=== PATIENT | female | born 1980 | race Caucasian/White ===

== ENCOUNTER 2017-07-16 14:05 | Emergency (ER) | payer BC ==
[~2017-07-16] VITALS: Ht 170.2 cm; Wt 109.2 kg
[~2017-07-16 14:05] MED LIST: ALBUAER INH; ATV/1 PO; BIOTCAP2 PO; LEVO75TA5 PO; LISI20TA3 PO; LVNIS40 SQ; MTR600X PO; ONDA4TAB65 PO; OXYC-57 PO; TRAZ50TA35 PO; ZOVIRAX CREAM TOP
[2017-07-16 14:16] VITALS: Ht 170.2 cm; Wt 109.2 kg
[2017-07-16] MEDS ORDERED: KETOROLAC TROMETHAMINE 30 MG/ML VIAL IV STA (14:26)
[2017-07-16] MEDS ORDERED: SODIUM CHLORIDE 0.9% 1000ML 2,000 ML IV STA (14:26)
[2017-07-16] MEDS ORDERED: SODIUM CHLORIDE 0.65% NA SOLN 45 ML (OCEAN) ONE (14:30)
[2017-07-16] MEDS ORDERED: ALBUT/IPRATROP 3MG/0.5MG NEB 3 ML VIAL INH ONE (14:30)
--- NOTE | 2017-07-16 14:32 | EMERGENCY ROOM VISIT NOTE ---
History Report prepared by Gregorio: Yohana Recio Under the Supervision of: Dr. Stefan Sears M.D. First contact with patient: 14:23 Chief Complaint: RESPIRATORY PROBLEMS Stated Complaint: SENT BY RECOVERING FROM FLU,ASTHMA & BREATHING History of Present Illness The patient is a 37 year old female who presents to the Emergency Room with complaints of persistent respiratory problems that started about 1 week ago. The patient rates her pain a 3/10 in severity. The patient states she was in ED over 1 week ago with her son who was diagnosed with the flu. She notes she got the flu 2 days later. She saw her PCP who gave her Tamiflu, cough syrup, and inhalers. She reports her cough is much worse than her son's. She notes she has a history of asthma. She reports she has persistent chest pain with her cough. The patient states her fever and body aches went away after taking Tamiflu. She reports her last fever was a couple of days ago. The patient states she has stress induced high blood pressure. The patient denies any nausea, vomiting, diarrhea, or urine changes. She notes she hasn't taken Tylenol or Ibuprofen for a couple of days. Source of History: patient Onset: 1 week ago Position: other (global) Symptom Intensity: 3/10 Timing: other (persistent) Associated Symptoms: + cough, + chest pain, No nausea, No vomiting, No diarrhea, No urinary symptoms Review of Systems See HPI for pertinent positives and negatives. A total of ten systems were reviewed and were otherwise negative. Past Medical & Surgical Medical Problems: (1) Anxiety (2) Appendectomy (3) APPENDICITIS NOS (4) Asthma (5) Cholecystectomy (6) Depression (7) Ectopic (8) Endometriosis (9) Follicular cyst of ovary (10) History of - section (11) History of venous thrombosis and embolism (12) Hypertension (13) Hypothyroidism (14) Migraine (15) MIGRAINE UNSPECIFIED W/O INTRACTABLE MIGRAINE (16) Obesity (BMI 30-39.9) (17) Ovarian cyst Surgical Problems: (1) History of appendectomy (2) History of cholecystectomy (3) History of tubal ligation (4) S/P tubal ligation Family History No pertinent family history Social History Smoking Status: Never Smoker Alcohol Use: none Drug Use: none Marital Status: Housing Status: lives with family Current/Historical Medications Scheduled Albuterol Hfa (Ventolin Hfa), 2-4 PUFFS INH Q4 Azithromycin (Zithromax), 250 MG PO DAILY Benzonatate (Tessalon Perles), 200 MG PO BID Fluticasone Propionate (Flovent Hfa), 2 PUFFS INH BID Levothyroxine Sodium (Synthroid), 75 MCG PO DAILY Lisinopril (Zestril), 20 MG PO DAILY Prednisone (Prednisone), 3 TAB PO DAILY Sertraline (Zoloft), 50 MG PO DAILY Scheduled PRN Guaifenesin (Robitussin), 5 ML PO Q4 PRN for Cough Allergies Coded Allergies: Adhesives (Verified Allergy, Mild, RASH AND HIVES, ONLY CERTAIN ONES, 07/16) COBAN OKAY, TEGADERM OKAY Penicillins (Verified Allergy, Unknown, ANAPHYLAXIS, 07/16/17) OCCURED A INFANT Physical Exam Vital Signs Date Time Temp Pulse Resp B/P (MAP) Pulse Ox O2 Delivery O2 Flow Rate FiO2 07/16/17 18:00 92 18 131/88 98 07/16/17 16:41 36.9 92 18 131/88 98 Room Air 07/16/17 15:13 98 07/16/17 14:49 97 Room Air 07/16/17 14:44 97 Room Air 07/16/17 14:16 36.8 116 24 123/83 97 Room Air Physical Exam GENERAL: Awake, alert, uncomfortable appearing, in no distress HENT: Normocephalic, atraumatic. Oropharynx unremarkable. Dry, cracked mucus membranes. EYES: Normal conjunctiva. Sclera non-icteric. NECK: Supple. No nuchal rigidity. FROM. No JVD. RESPIRATORY: Scattered rhonchi and wheezes. CARDIAC: Regular rate, normal rhythm. Extremities warm and well perfused. Pulses equal. ABDOMEN: Obese abdomen. Soft, non-distended. No tenderness to palpation. No rebound or guarding. No masses. RECTAL: Deferred. MUSCULOSKELETAL: Chest examination reveals no tenderness. The back is symmetrical on inspection without obvious abnormality. There is no CVA tenderness to palpation. No joint edema. LOWER EXTREMITIES: Calves are equal size bilaterally and non-tender. No edema. No discoloration. NEURO: Normal sensorium. No sensory or motor deficits noted. SKIN: No rash or jaundice noted. Medical Decision & Procedures ER Provider Diagnostic Interpretation: Radiology results as stated below per my review and radiologist interpretation: CHEST ONE VIEW PORTABLE CLINICAL HISTORY: Chest pain. COMPARISON STUDY: Chest radiograph June 19, 2012. FINDINGS: Lung volumes are at the lower limits of normal. Lungs are clear. No pneumothorax or pleural effusion is noted. Cardiac size is normal. Mediastinal contours are normal. Pulmonary vascularity is normal. IMPRESSION: No acute cardiopulmonary findings. Electronically signed by: Santiago Moore M.D. 07/16/2017 2:51 PM Dictated Date/Time: 07/16/2017 2:50 PM Laboratory Results 07/16/17 15:05 Red Blood Count 5.17, Mean Corpuscular Volume 88.4, Mean Corpuscular Hemoglobin 30.9, Mean Corpuscular Hemoglobin Concent 35.0, Mean Platelet Volume 10.6, Neutrophils (%) (Auto) 49.1, Lymphocytes (%) (Auto) 40.2, Monocytes (%) (Auto) 9.6, Eosinophils (%) (Auto) 0.8, Basophils (%) (Auto) 0.3, Neutrophils # (Auto) 1.85, Lymphocytes # (Auto) 1.51, Monocytes # (Auto) 0.36, Eosinophils # (Auto) 0.03, Basophils # (Auto) 0.01 07/16/17 15:05 Test 07/16/17 15:05 White Blood Count 3.76 K/uL (4.8-10.8) Red Blood Count 5.17 M/uL (4.2-5.4) Hemoglobin 16.0 g/dL (12.0-16.0) Hematocrit 45.7 % (37-47) Mean Corpuscular Volume 88.4 fL (80-100) Mean Corpuscular Hemoglobin 30.9 pg (25-34) Mean Corpuscular Hemoglobin Concent 35.0 g/dl (32-36) Platelet Count 164 K/uL (130-400) Mean Platelet Volume 10.6 fL (7.4-10.4) Neutrophils (%) (Auto) 49.1 % Lymphocytes (%) (Auto) 40.2 % Monocytes (%) (Auto) 9.6 % Eosinophils (%) (Auto) 0.8 % Basophils (%) (Auto) 0.3 % Neutrophils # (Auto) 1.85 K/uL (1.4-6.5) Lymphocytes # (Auto) 1.51 K/uL (1.2-3.4) Monocytes # (Auto) 0.36 K/uL (0.11-0.59) Eosinophils # (Auto) 0.03 K/uL (0-0.5) Basophils # (Auto) 0.01 K/uL (0-0.2) RDW Standard Deviation 40.5 fL (36.4-46.3) RDW Coefficient of Variation 12.6 % (11.5-14.5) Immature Granulocyte % (Auto) 0.0 % Immature Granulocyte # (Auto) 0.00 K/uL (0.00-0.02) Anion Gap 10.0 mmol/L (3-11) Est Creatinine Clear Calc Drug Dose 127.4 ml/min Estimated GFR () 114.3 Estimated GFR (Non- 98.6 BUN/Creatinine Ratio 14.1 (10-20) Calcium Level 8.7 mg/dl (8.5-10.1) Troponin I < 0.015 ng/ml (0-0.045) Laboratory results reviewed by me Medications Administered Medications (Trade) Dose Ordered Sig/Abad Route Start Time Stop Time Status Last Admin Dose Admin Sodium Chloride 2,000 ml @ 999 mls/hr Q2H1M STAT IV 07/16/17 14:26 07/16/17 16:26 DC 07/16/17 15:02 999 MLS/HR Albuterol/ Ipratropium (Duoneb) 12 ml ONE ONCE INH 07/16/17 14:30 07/16/17 14:32 DC 07/16/17 14:51 12 ML Prednisone (PredniSONE TAB) 60 mg NOW STAT PO 07/16/17 14:26 07/16/17 14:32 DC 07/16/17 14:52 60 MG Ketorolac Tromethamine (Toradol Inj) 15 mg NOW STAT IV 07/16/17 14:26 07/16/17 14:32 DC 07/16/17 15:02 15 MG Sodium Chloride (Trigg Nasal Harvey) 2 sprays NOW ONCE NA 07/16/17 14:30 07/16/17 14:32 DC 07/16/17 14:52 2 SPRAYS ECG Per My Interpretation Indication: SOB/dyspnea Rate (beats per minute): 90 Rhythm: normal sinus Findings: no acute ischemic change, other (normal axis) ED Course 1423: The patient was evaluated in room C3. A complete history and physical exam was performed. 1710: I reevaluated the patient and she is feeling better. Discussed results and discharge instructions: She verbalized understanding and agreement. The patient is ready for discharge. Medical Decision I reviewed the patient's past medical history, medications, and the nursing notes as described above. Differential diagnosis: Etiologies such as infections, reactive airway disease, pneumonia, pneumothorax , COPD, CHF, cardiac ischemia, pulmonary embolism, musculoskeletal, gastrointestinal, as well as others were entertained. The patient is a 37 y/o woman with a pmhx asthma who presents to the emergency department with persistent cough, congestion and wheezing in the setting of being treated for the flu with Tamiflu last week and currently on Azithromycin per HPI. On arrival the patient is in NAD, with HR 110s but otherwise AFVSS. On exam, has scattered wheezes and rhonchi. Labs with WBC 3 c/w recent viral illness. Otherwise labs unremarkable. CXR negative. Patient improved with nebs, steroids, IVF, saline nasal spray. HR improved to 90s. Patient feeling improved for d/c. Findings and plan for follow-up reviewed with patient. Patient agreeable and d/c'd per discharge instructions. Medication Reconcilliation Current Medication List: was personally reviewed by me Impression Primary Impression: Upper respiratory infection Scribe Attestation The scribe's documentation has been prepared under my direction and personally reviewed by me in its entirety. I confirm that the note above accurately reflects all work, treatment, procedures, and medical decision making performed by me. Departure Information Dispostion Home / Self-Care Prescriptions Prednisone (Prednisone) 20 Mg Tab 3 TAB PO DAILY for 4 Days, #12 TAB FOR 4 DAYS Prov: Stefan Sears M.D. 07/16/17 Referrals Vicki Hilliard D.O. (PCP) Patient Instructions ED Upper Resp Infec No Abx Tx, My [facility] Additional Instructions Please follow up with your primary care physician in the next 1-3 days for re- evaluation. Your symptoms are likely due to a viral upper respiratory infection. Otherwise, your exam, EKG, chest xray, and lab results did not show signs of an emergent condition at this time. Acetaminophen or ibuprofen for pain and fevers as needed. Prednisone as directed. Saline nasal spray and [id number] Mucinex to help loosen and clear mucus. Continue your current Azithromycin as prescribed. Drink plenty of fluids to ensure hydration. Return to the emergency department for worsening symptoms as described in the accompanying instructions.
[2017-07-16 14:44] VITALS: O2SAT 97
--- NOTE | 2017-07-16 14:52 | DIAGNOSTIC IMAGING REPORT ---
CHEST ONE VIEW PORTABLE CLINICAL HISTORY: Chest pain. COMPARISON STUDY: Chest radiograph June 19, 2012. FINDINGS: Lung volumes are at the lower limits of normal. Lungs are clear. No pneumothorax or pleural effusion is noted. Cardiac size is normal. Mediastinal contours are normal. Pulmonary vascularity is normal. IMPRESSION: No acute cardiopulmonary findings. Electronically signed by: Santiago Moore M.D. 07/16/2017 2:51 PM Dictated Date/Time: 07/16/2017 2:50 PM
[2017-07-16] MEDS ORDERED: BENZ1CAP90 PO (14:59)
[2017-07-16] MEDS ORDERED: VNTHFA/IN INH (14:59)
[2017-07-16] MEDS ORDERED: FLVHFA44 INH (14:59)
[2017-07-16] MEDS ORDERED: AZIT250T PO (14:59)
[2017-07-16] MEDS ORDERED: RBTUDL5 PO (14:59)
[2017-07-16] MEDS ORDERED: LISI-725 PO (14:59)
[2017-07-16] MEDS ORDERED: SERT50TA PO (14:59)
[2017-07-16] MEDS ORDERED: LEVO75TA PO (14:59)
[2017-07-16 15:16] LABS: BASO % 0.3 %; BASO ABS # 0.01 K/uL (0-0.2); EOS % 0.8 %; EOS ABS # 0.03 K/uL (0-0.5); HEMATOCRIT 45.7 % (37-47); LYMPH % 40.2 %; LYMPH ABS # 1.51 K/uL (1.2-3.4); MEAN CELL VOLUME 88.4 fL (80-100); MEAN CORPUSCULAR HEMOGLOBIN 30.9 pg (25-34); MEAN PLATELET VOLUME 10.6 fL (7.4-10.4); MONO % 9.6 %; MONO ABS # 0.36 K/uL (0.11-0.59); NEUT % 49.1 %; NEUT ABS # 1.85 K/uL (1.4-6.5); PLATELET COUNT 164 K/uL (130-400); RED CELL DISTRIBUTION WIDTH CV 12.6 % (11.5-14.5); RED CELL DISTRIBUTION WIDTH SD 40.5 fL (36.4-46.3); WHITE BLOOD COUNT 3.76 K/uL (4.8-10.8)
[2017-07-16 15:35] LABS: BLOOD UREA NITROGEN 11 mg/dl (7-18); CALCIUM 8.7 mg/dl (8.5-10.1); CARBON DIOXIDE 26 mmol/L (21-32); CREATININE 0.77 mg/dl (0.60-1.20); GLUCOSE 90 mg/dl (70-99); POTASSIUM 3.7 mmol/L (3.5-5.1); SODIUM 140 mmol/L (136-145)
[2017-07-16 16:41] VITALS: TEMP 36.9
[2017-07-16] MEDS ORDERED: PRED20TA PO (17:41)
[2017-07-16 18:00] VITALS: BP 131/88; PULSE 92; O2SAT 98
[2017-07-16] MEDS ORDERED: GUAIFENESIN 600 MG TABCR PO SCH (21:00)
== END 2017-07-16 18:01 | disposition home or self-care (01) ==
LOC: C.EDB 14:06 → C.EDC 18:01
DX: J06.9 Acute upper respiratory infection, unspecified (principal); N80.9 Endometriosis, unspecified; E03.9 Hypothyroidism, unspecified; I10 Essential (primary) hypertension; F32.9 Major depressive disorder, single episode, unspecified; J45.909 Unspecified asthma, uncomplicated; Z87.59 Personal history of other complications of pregnancy, childbirth and the puerperium; Z86.718 Personal history of other venous thrombosis and embolism; Z90.49 Acquired absence of other specified parts of digestive tract; Z98.51 Tubal ligation status; Z90.89 Acquired absence of other organs; Z98.891 History of uterine scar from previous surgery; Z79.899 Other long term (current) drug therapy

== ENCOUNTER 2017-07-17 18:18 | Emergency (ER) | payer BC ==
[~2017-07-17] VITALS: Ht 170.2 cm; Wt 111.5 kg
[~2017-07-17 18:18] MED LIST changes: -ALBUAER INH; -ATV/1 PO; +AZIT250T PO; +BENZ1CAP90 PO; -BIOTCAP2 PO; +FLVHFA44 INH; +LEVO75TA PO; -LEVO75TA5 PO; +LISI-725 PO; -LISI20TA3 PO; -LVNIS40 SQ; -MTR600X PO; -ONDA4TAB65 PO; -OXYC-57 PO; +PRED20TA PO; +RBTUDL5 PO; +SERT50TA PO; -TRAZ50TA35 PO; +VNTHFA/IN INH; -ZOVIRAX CREAM TOP
[2017-07-17 18:23] VITALS: BP 139/79; PULSE 96; TEMP 36.8; O2SAT 96; Ht 170.2 cm; Wt 111.5 kg
== END 2017-07-17 19:53 | disposition left against medical advice (07) ==
LOC: C.EDB 18:20

== ENCOUNTER 2017-07-27 19:28 | Emergency (ER) | payer BC ==
[~2017-07-27] VITALS: Ht 170.2 cm; Wt 111.7 kg
[~2017-07-27 19:28] MED LIST changes: -PRED20TA PO
[2017-07-27 19:32] VITALS: TEMP 36.7; Ht 170.2 cm; Wt 111.7 kg
[2017-07-27] MEDS ORDERED: SODIUM CHLORIDE 0.9% 1000ML 1,000 ML IV STA (19:51)
[2017-07-27] MEDS ORDERED: KETOROLAC TROMETHAMINE 30 MG/ML VIAL IV STA (19:57)
[2017-07-27] MEDS ORDERED: LORAZEPAM 1 MG TAB SL STA (19:57)
[2017-07-27 19:58] VITALS: O2SAT 99
[2017-07-27 20:03] LABS: BASO % 0.2 %; BASO ABS # 0.02 K/uL (0-0.2); EOS % 0.5 %; EOS ABS # 0.06 K/uL (0-0.5); HEMATOCRIT 43.4 % (37-47); IG# 0.08 K/uL (0.00-0.02); LYMPH % 19.8 %; LYMPH ABS # 2.22 K/uL (1.2-3.4); MEAN CELL VOLUME 88.6 fL (80-100); MEAN CORPUSCULAR HEMOGLOBIN 30.6 pg (25-34); MEAN CORPUSCULAR HGB CONC 34.6 g/dl (32-36); MONO % 6.3 %; MONO ABS # 0.71 K/uL (0.11-0.59); NEUT % 72.5 %; NEUT ABS # 8.13 K/uL (1.4-6.5); PLATELET COUNT 252 K/uL (130-400); RED CELL DISTRIBUTION WIDTH CV 12.7 % (11.5-14.5); RED CELL DISTRIBUTION WIDTH SD 40.2 fL (36.4-46.3); WHITE BLOOD COUNT 11.22 K/uL (4.8-10.8)
[2017-07-27 20:20] LABS: BLOOD UREA NITROGEN 10 mg/dl (7-18); CALCIUM 8.9 mg/dl (8.5-10.1); CARBON DIOXIDE 23 mmol/L (21-32); GLUCOSE 96 mg/dl (70-99); POTASSIUM 3.8 mmol/L (3.5-5.1); SODIUM 137 mmol/L (136-145)
[2017-07-27] MEDS ORDERED: ATV/1 PO (20:22)
[2017-07-27] MEDS ORDERED: TRAZ50TA35 PO (20:22)
--- NOTE | 2017-07-27 20:29 | DIAGNOSTIC IMAGING REPORT ---
CHEST ONE VIEW PORTABLE CLINICAL HISTORY: 37 years-old Female presenting with Chest Pain. TECHNIQUE: Portable upright AP view of the chest was obtained. COMPARISON: 07/16/2017. FINDINGS: Cardiomediastinal silhouette normal. Mildly low lung volumes with hypoventilatory changes. No focal opacity. No large effusion or pneumothorax. Osseous structures normal. Upper abdomen normal. IMPRESSION: 1. Mildly low lung volumes with hypoventilatory changes. No convincing evidence of acute cardiopulmonary disease. Electronically signed by: Jose Taylor M.D. 07/27/2017 8:27 PM Dictated Date/Time: 07/27/2017 8:27 PM
[2017-07-27 20:30] LABS: CKMB < 0.5 ng/ml (0.5-3.6)
[2017-07-27 21:06] VITALS: BP 151/92; PULSE 97; O2SAT 99
--- NOTE | 2017-07-28 00:41 | EMERGENCY ROOM VISIT NOTE ---
History Report prepared by Gregorio: Odilia Cote Under the Supervision of: Dr. Jair Jo D.O. First contact with patient: 19:37 Chief Complaint: CHEST PAIN Stated Complaint: CHEST PAINS, DIZZINESS History of Present Illness The patient is a 37 year old female who presents to the Emergency Room with complaints of intermittent chest pain beginning yesterday. She describes her pain as tightness in her central chest. She reports neck pain, heart racing, and numbness and tingling of her hands and feet. No significant remitting factors. The patient has a history of panic attacks. She reports her symptoms today are different than her normal panic attacks. The patient has a history of hypertension and PTSD. She reports taking Ativan a couple hours ago with no relief. Patient denies swelling of calves, recent trips, history of immobilization or recent surgery, prior history of DVT, hemoptysis, history of malignancy, history of smoking, or control/estrogen use. Patient denies diabetes, hypertension, hyperlipidemia, CAD, history of sudden at a young age, and smoking. Pt denies headache, change in vision, fevers, shortness of breath, nausea, vomiting, diarrhea, pain with urination, and melena. Source of History: patient Onset: yesterday Position: chest Quality: other (tightness) Timing: intermittent Associated Symptoms: + neck pain, + chest pain, + numbness (and tingling), No SOB Review of Systems See HPI for pertinent positives & negatives. A total of 10 systems reviewed and were otherwise negative. Past Medical & Surgical Medical Problems: (1) Anxiety (2) Appendectomy (3) APPENDICITIS NOS (4) Asthma (5) Cholecystectomy (6) Depression (7) Ectopic (8) Endometriosis (9) Follicular cyst of ovary (10) History of - section (11) History of venous thrombosis and embolism (12) Hypertension (13) Hypothyroidism (14) Migraine (15) MIGRAINE UNSPECIFIED W/O INTRACTABLE MIGRAINE (16) Obesity (BMI 30-39.9) (17) Ovarian cyst Surgical Problems: (1) History of appendectomy (2) History of cholecystectomy (3) History of tubal ligation (4) S/P tubal ligation Family History No pertinent family history Social History Smoking Status: Never Smoker Alcohol Use: none Drug Use: none Marital Status: Housing Status: lives with family Current/Historical Medications Scheduled Albuterol Hfa (Ventolin Hfa), 2-4 PUFFS INH Q4H Fluticasone Propionate (Flovent Hfa), 2 PUFFS INH BID Levothyroxine Sodium (Synthroid), 75 MCG PO DAILY Lisinopril (Zestril), 20 MG PO DAILY Sertraline (Zoloft), 50 MG PO DAILY Scheduled PRN Guaifenesin (Robitussin), 5 ML PO Q4H PRN for Cough Lorazepam (Ativan), 1 MG PO DAILY PRN for Anxiety Trazodone Hcl (Trazodone), 50 MG PO HS PRN for Sleep Allergies Coded Allergies: Adhesives (Verified Allergy, Mild, RASH AND HIVES, ONLY CERTAIN ONES, 07/16) COBAN OKAY, TEGADERM OKAY Penicillins (Verified Allergy, Unknown, ANAPHYLAXIS, 07/16/17) OCCURED A INFANT Physical Exam Vital Signs Date Time Temp Pulse Resp B/P (MAP) Pulse Ox O2 Delivery O2 Flow Rate FiO2 07/27/17 21:06 97 20 151/92 99 Room Air 07/27/17 20:22 100 20 152/89 99 Room Air 07/27/17 19:58 99 Room Air 07/27/17 19:56 99 Room Air 07/27/17 19:52 103 07/27/17 19:32 36.7 118 18 151/104 96 Room Air Physical Exam GENERAL: Sitting up in bed, alert, anxious appearing, well nourished, no distress, non-toxic EYE EXAM: normal conjunctiva. OROPHARYNX: no exudate, no erythema, lips, buccal mucosa, and tongue normal and mucous membranes are moist NECK: supple, no nuchal rigidity, no adenopathy, non-tender LUNGS: Clear to auscultation. Normal chest wall mechanics HEART: no murmurs, S1 normal and S2 normal ABDOMEN: abdomen soft, non-tender, normo-active bowel sounds, no masses, no rebound or guarding. BACK: Back is symmetrical on inspection and there is no deformity, no midline tenderness, no CVA tenderness. SKIN: no rashes and no bruising UPPER EXTREMITIES: upper extremities are grossly normal. LOWER EXTREMITIES: No pitting edema. Calves equal bilaterally. NEURO EXAM: Normal sensorium, cranial nerves II-XII grossly intact, normal speech, no gross weakness of arms, no gross weakness of legs. Medical Decision & Procedures ER Provider Diagnostic Interpretation: Radiology results as stated below per my review and the radiologist's interpretation: CHEST ONE VIEW PORTABLE FINDINGS: Cardiomediastinal silhouette normal. Mildly low lung volumes with hypoventilatory changes. No focal opacity. No large effusion or pneumothorax. Osseous structures normal. Upper abdomen normal. IMPRESSION: 1. Mildly low lung volumes with hypoventilatory changes. No convincing evidence of acute cardiopulmonary disease. Electronically signed by: Jose Taylor M.D. Laboratory Results 07/27/17 19:50 Red Blood Count 4.90, Mean Corpuscular Volume 88.6, Mean Corpuscular Hemoglobin 30.6, Mean Corpuscular Hemoglobin Concent 34.6, Mean Platelet Volume 10.0, Neutrophils (%) (Auto) 72.5, Lymphocytes (%) (Auto) 19.8, Monocytes (%) (Auto) 6.3, Eosinophils (%) (Auto) 0.5, Basophils (%) (Auto) 0.2, Neutrophils # (Auto) 8.13, Lymphocytes # (Auto) 2.22, Monocytes # (Auto) 0.71, Eosinophils # (Auto) 0.06, Basophils # (Auto) 0.02 07/27/17 19:50 Test 07/27/17 19:50 07/27/17 20:18 White Blood Count 11.22 K/uL (4.8-10.8) Red Blood Count 4.90 M/uL (4.2-5.4) Hemoglobin 15.0 g/dL (12.0-16.0) Hematocrit 43.4 % (37-47) Mean Corpuscular Volume 88.6 fL (80-100) Mean Corpuscular Hemoglobin 30.6 pg (25-34) Mean Corpuscular Hemoglobin Concent 34.6 g/dl (32-36) Platelet Count 252 K/uL (130-400) Mean Platelet Volume 10.0 fL (7.4-10.4) Neutrophils (%) (Auto) 72.5 % Lymphocytes (%) (Auto) 19.8 % Monocytes (%) (Auto) 6.3 % Eosinophils (%) (Auto) 0.5 % Basophils (%) (Auto) 0.2 % Neutrophils # (Auto) 8.13 K/uL (1.4-6.5) Lymphocytes # (Auto) 2.22 K/uL (1.2-3.4) Monocytes # (Auto) 0.71 K/uL (0.11-0.59) Eosinophils # (Auto) 0.06 K/uL (0-0.5) Basophils # (Auto) 0.02 K/uL (0-0.2) RDW Standard Deviation 40.2 fL (36.4-46.3) RDW Coefficient of Variation 12.7 % (11.5-14.5) Immature Granulocyte % (Auto) 0.7 % Immature Granulocyte # (Auto) 0.08 K/uL (0.00-0.02) Anion Gap 9.0 mmol/L (3-11) Est Creatinine Clear Calc Drug Dose 141.8 ml/min Estimated GFR () 128.3 Estimated GFR (Non- 110.7 BUN/Creatinine Ratio 14.3 (10-20) Calcium Level 8.9 mg/dl (8.5-10.1) Total Creatine Kinase 45 U/L (26-192) Creatine Kinase MB < 0.5 ng/ml (0.5-3.6) Creatine Kinase MB Ratio (0-3.0) Troponin I < 0.015 ng/ml (0-0.045) Thyroid Stimulating Hormone (TSH) 3.000 uIu/ml (0.300-4.500) D-Dimer 360 ug/L FEU (0-500) Laboratory results per my review. Medications Administered Medications (Trade) Dose Ordered Sig/Abad Route Start Time Stop Time Status Last Admin Dose Admin Sodium Chloride 1,000 ml @ 999 mls/hr Q1H1M STAT IV 07/27/17 19:51 07/27/17 20:51 DC 07/27/17 20:02 999 MLS/HR Lorazepam (Ativan Tab) 1 mg NOW STAT SL 07/27/17 19:57 07/27/17 19:58 DC 07/27/17 20:02 1 MG Ketorolac Tromethamine (Toradol Inj) 30 mg NOW STAT IV 07/27/17 19:57 07/27/17 19:58 DC 07/27/17 20:02 30 MG ECG Per My Interpretation Indication: chest pain Rate (beats per minute): 104 Rhythm: sinus tachycardia Findings: no ectopy, other (normal axis) ED Course ED COURSE: Vital signs were reviewed and showed tachycardic The patients medical record was reviewed The above diagnostic studies were performed and reviewed. ED treatments and interventions as stated above. 1940: The patient was evaluated in room A3. A complete history and physical examination was performed. 1950: Ordered Sodium Chloride 1000 ml @ 999 mls/hr IV. 1956: Ordered Toradol Inj 30 mg IV, Ativan tab 1 mg SL. 2125: Upon reevaluation, the patient is resting comfortably.I discussed my findings with the patient and she understands and agrees with the treatment plan. Based on the patients age, coexisting illnesses, exam and lab findings the decision to treat as an outpatient was made. The patient remained stable while under my care. The patient appeared well at the time of discharge. Medical Decision Differential diagnoses includes but is not limited to acute coronary syndrome, myocardial infarction, pericarditis, pulmonary embolus, aortic dissection, pneumonia, pneumothorax, musculoskeletal, shingles, esophageal. Patient is a 37-year-old female who presents to ER for chest pain which is been present since yesterday associated with feeling her heart race and tingling in her bilateral upper extremities which comes and goes. Describes chest pain as tightness and shortness. She says mild tingling in her face. No cardiac risk factors with the exception of hypertension. She is a low risk in regards to PE risk factors. CBC and BMP were unremarkable. Troponin was negative with pain greater than 8 hours. D-dimer was negative. EKG was unremarkable. Chest x- ray unremarkable as well. Patient was given Toradol and Ativan. She did have some improvement of her symptoms. TSH was normal. She was updated bedside. She was discharged follow-up with PCP as an outpatient. Discussed with Pt concerning signs and symptoms to watch out for. Pt was instructed to follow up with their PCP and discussed with the patient their option to return to the ED at anytime for persistent or worsening symptoms. The appropriate anticipatory guidance and out-patient management, including indications for return to the emergency department, were explained at length to the patient and understood. Medication Reconcilliation Current Medication List: was personally reviewed by me Blood Pressure Screening Patient's blood pressure: Elevated blood pressure Blood pressure disposition: Elevated BP felt to be situational Impression Primary Impression: Anxiety Additional Impression: Chest pain Scribe Attestation The scribe's documentation has been prepared under my direction and personally reviewed by me in its entirety. I confirm that the note above accurately reflects all work, treatment, procedures, and medical decision making performed by me. Departure Information Dispostion Home / Self-Care Referrals Vicki Hilliard D.O. (PCP) Forms Call Back Authorization, HOME CARE DOCUMENTATION FORM, IMPORTANT VISIT INFORMATION Patient Instructions Chest Pain - [facility], My [facility] Additional Instructions Please follow up with your primary care doctor with in the next 24 hours. Any worsening of your symptoms, please return to the ED immediately. This includes any fevers greater than 100.4, worsening pain, chest pain, shortness breath, persistent nausea, vomiting, unable to eat or drink, or any other concerning signs or symptoms from your standpoint. No driving for the remainder of the day. Problem Qualifiers Additional Impression: Chest pain Chest pain type: unspecified Qualified Codes: R07.9 - Chest pain, unspecified
== END 2017-07-27 21:26 | disposition home or self-care (01) ==
LOC: C.EDB 19:29 → C.EDA 21:26
DX: F41.9 Anxiety disorder, unspecified (principal); R07.9 Chest pain, unspecified; I10 Essential (primary) hypertension; F43.10 Post-traumatic stress disorder, unspecified; F32.9 Major depressive disorder, single episode, unspecified; E03.9 Hypothyroidism, unspecified; J45.909 Unspecified asthma, uncomplicated; Z91.048 Other nonmedicinal substance allergy status; Z88.0 Allergy status to penicillin

== ENCOUNTER 2017-09-11 13:07 | Emergency (ER) | payer BC ==
[~2017-09-11] VITALS: Ht 170.2 cm; Wt 115.7 kg
[~2017-09-11 13:07] MED LIST changes: +ATV/1 PO; -AZIT250T PO; -BENZ1CAP90 PO; +TRAZ50TA35 PO
[2017-09-11 13:09] VITALS: TEMP 36.7; Ht 170.2 cm; Wt 115.7 kg
--- NOTE | 2017-09-11 14:07 | DIAGNOSTIC IMAGING REPORT ---
R ANKLE MIN 3 VIEWS ROUTINE CLINICAL HISTORY: ankle injury trauma. Pain. COMPARISON: None. DISCUSSION: Small heel spur. No evidence for acute bony pathology. Study specifically negative for fracture or dislocation. Ankle mortise is aligned anatomically. There is no evidence for soft tissue swelling. IMPRESSION: Small heel spur. Otherwise negative study. The above report was generated using voice recognition software. It may contain grammatical, syntax or spelling errors. Electronically signed by: Tyrese Crockett M.D. 09/11/2017 2:05 PM Dictated Date/Time: 09/11/2017 2:05 PM
--- NOTE | 2017-09-11 14:19 | EMERGENCY ROOM VISIT NOTE ---
ED Visit Note First contact with patient: 13:19 CHIEF COMPLAINT: Right ankle injury HISTORY OF PRESENT ILLNESS: This 37-year-old female patient sustained an injury to the right ankle with a twisting, inversion motion on when she stepped off an uneven pavement.. Complains of swelling and pain. The patient is able to bear weight on the foot but with pain. Constant pain, moderate to severe, worse with movement, weight bearing, and the dependent position. No knee pain. Patient does admit to prior surgery on the right ankle by [facility] when she was 19 years old. REVIEW OF SYSTEMS: 6 system review was performed and was negative unless stated otherwise in history of present illness. PMH: Prior right ankle injury as noted in HPI. Hypertension, asthma, SOCIAL HISTORY: Patient lives with family. The patient denies any tobacco or alcohol use. PHYSICAL EXAM: Vital Signs: Reviewed Nurse's notes. general: 37-year-old white female appears in no acute distress. MENTAL STATUS: Alert, oriented, and cooperative. RIGHT ANKLE the ankle is swollen and tender over the lateral aspect but the skin is intact and there is no ligamentous instability. There is no deformity. The foot and toes are warm and well-perfused. Sensation to pain and light touch is intact. EMERGENCY DEPARTMENT COURSE: The patient was evaluated. Patient's EMR medication list were reviewed. X-ray of the right ankle was ordered interpreted by the radiologist and myself. DIAGNOSTICS:R ANKLE MIN 3 VIEWS ROUTINE CLINICAL HISTORY: ankle injury trauma. Pain. COMPARISON: None. DISCUSSION: Small heel spur. No evidence for acute bony pathology. Study specifically negative for fracture or dislocation. Ankle mortise is aligned anatomically. There is no evidence for soft tissue swelling. IMPRESSION: Small heel spur. Otherwise negative study. The above report was generated using voice recognition software. It may contain grammatical, syntax or spelling errors. Electronically signed by: Tyrese Crockett M.D. 09/11/2017 2:05 PM The patient was informed of findings. The patient did not fit in the gel splint and therefore she was placed in a fracture boot and the patient was discharged home in stable condition. DIAGNOSIS: Sprained right ankle DISCHARGE INSTRUCTIONS: Ice and elevation over the next 24 hours. Ibuprofen, 600 mg every 6 hours if needed for pain. Wear boot until pain is tolerable without it.. If there is no improvement in 3-5 days followup with your doctor or [facility] Problem List Medical Problems: (1) Appendectomy Status: Resolved (2) APPENDICITIS NOS Status: Chronic (3) Cholecystectomy Status: Resolved (4) Ectopic Status: Resolved (5) Follicular cyst of ovary Status: Chronic (6) History of - section Status: Resolved (7) MIGRAINE UNSPECIFIED W/O INTRACTABLE MIGRAINE Status: Chronic Surgical Problems: (1) S/P tubal ligation Status: Resolved Current/Historical Medications Scheduled Albuterol Hfa (Ventolin Hfa), 2-4 PUFFS INH Q4H Levothyroxine Sodium (Synthroid), 75 MCG PO DAILY Lisinopril (Zestril), 20 MG PO DAILY Sertraline (Zoloft), 50 MG PO DAILY Scheduled PRN Lorazepam (Ativan), 1 MG PO DAILY PRN for Anxiety Trazodone Hcl (Trazodone), 50 MG PO HS PRN for Sleep Allergies Coded Allergies: Adhesives (Verified Allergy, Mild, RASH AND HIVES, ONLY CERTAIN ONES, 07/16) COBAN OKAY, TEGADERM OKAY Penicillins (Verified Allergy, Unknown, ANAPHYLAXIS, 07/16/17) OCCURED A INFANT Vital Signs Date Time Temp Pulse Resp B/P (MAP) Pulse Ox O2 Delivery O2 Flow Rate FiO2 09/11/17 13:09 36.7 88 20 161/94 96 Room Air Departure Information Referrals Vicki Hilliard D.O. (PCP) Patient Instructions My [facility]
[2017-09-11 14:45] VITALS: BP 150/86; PULSE 79; O2SAT 96
== END 2017-09-11 14:45 | disposition home or self-care (01) ==
LOC: C.EDB 13:08 → C.EDD 14:45
DX: S93.401A Sprain of unspecified ligament of right ankle, initial encounter (principal); X50.9XXA Other and unspecified overexertion or strenuous movements or postures, initial encounter; Y92.480 Sidewalk as the place of occurrence of the external cause; M77.31 Calcaneal spur, right foot

== ENCOUNTER 2021-01-11 10:05 | Observation (INO) ==
--- NOTE | 2021-01-07 08:42 | Anesthesiology Consultation ---
Date of Service January 07, 2021 Assessment & Plan (1) Encounter for pre-operative examination: - COVID screening: Per assessment on 01/07: Travel screen negative, no known COVID-19 positive contacts or current COVID-19 related symptoms. Patient vaccinated. Surgeon arranging preop COVID testing (scheduled 01/07). Awaiting results. - Cardiology telemedicine visit (09/24/20): "Patient with ongoing palpitations, worse with exertional activities. Also reports dyspnea with exertional activities. Due to these complaints, patient is anxious to start an exercise program. No recent echo on file. Will request exercise stress echo to assess LV/RV function, structural heart disease and pulm hypertension, as well as r/o ischemia prior to starting exercise program. This will also allow us to evaluate her HR and BP with exercise. She does have risk factors for underlying heart disease.. Her cholesterol is also significantly elevated. Last evaluation 1 year ago. Recommend updating lipid panel in the near future with CMP. She also previously had thyroid problems and has been off medication for awhile. Will recheck. In the meantime, she will continue metoprolol 100 mg daily. Further recommendations pending review of labs and exercise stress echo." - Cardiology follow-up notes: Per note 10/23/20, "Stress test results reviewed. Normal LV systolic function. No inducible ischemia at 84% MPHR. Slight HR attenuation due to medication. No significant valvular disease. Normal study. No changes at this time. Per note 10/27/20, "Thyroid levels are normal. Magnesium levels are normal. Cholesterol levels are trending down but remain elevated. Recommend improving diet/exercise patterns. Will recheck fasting lipid panel in 3 months." - Preop EKG: Patient had unremarkable recent stress echo 10/23/20 but most recent 12 lead EKG is from 05/2018. At that time, NSR/unremarkable. Will update AM DOS. Chart Review Chart Review: Patient NOT seen in Pre Admission Testing History Surgery Operation Date: 01/11/21 07:30 Proposed Procedures p Bilateral Breast Reduction with Free Nipple Graft - Kristin Greenberg MD Height/Weight Height: 5 ft 7 in Weight: 117.934 kg Allergies Allergy/AdvReac Type Severity Reaction Status Date / Time adhesive Allergy Mild Rash, hives Verified 01/07/21 08:28 Penicillins Allergy Unknown Anaphylaxis Verified 01/07/21 08:28 nickel Allergy Hives Verified 01/06/21 17:25 Medications Home Medications Medication Instructions Recorded Confirmed Last Taken albuterol sulfate 90 mcg/actuation 2 puff INHALATION Q6H PRN 11/20/20 01/06/21 Unknown aerosol inhaler lisinopril 20 mg tablet 20 mg PO QAM 11/20/20 01/06/21 Unknown metoprolol succinate 100 mg 100 mg PO QAM 11/20/20 01/06/21 Unknown tablet,extended release 24 hr clindamycin HCl 300 mg capsule 300 mg PO BID 7 Days #14 cap 12/22/20 01/06/21 Unknown enoxaparin 40 mg/0.4 mL 40 mg SUBCUT DAILY 7 Days #2.8 ml 12/22/20 01/06/21 Unknown subcutaneous syringe (Lovenox) hydroxyzine HCl 10 mg tablet 10 mg PO TID PRN 12/22/20 01/06/21 Unknown oxycodone-acetaminophen 5 mg-325 1 tab PO Q4H PRN #18 tab 12/22/20 01/06/21 Unknown mg tablet (Endocet) cyclobenzaprine 10 mg tablet 10 mg PO TID PRN 01/06/21 01/06/21 Unknown multivitamin 1 tab PO QAM 01/06/21 01/06/21 Unknown Past Medical History Medical History Anxiety Asthma rare use of PRN inh Chronic back pain Degenerated intervertebral disc Fear of hospitals History of panic attacks History of venous thrombosis and embolism Uterine (with 2006), treated with warfarin, surgeon prescribed lovenox x1 week post-op d/t hx DVT Hypothyroidism Inappropriate sinus tachycardia Follows with Dr. Whitley Migraines Morbid obesity Osteoarthritis Ovarian torsion Hx PTSD (post-traumatic stress disorder) Situational hypertension White coat syndrome with hypertension Past Family History Family History Other Breast cancer Cancer Heart disease Hypertension No family history of adverse response to anesthesia Stroke Past Surgical History Surgical History H/O vaginal surgery History of anesthesia reaction anesthesia "wore off" during c section History of ankle surgery Rt History of appendectomy History of section x2 History of cholecystectomy History of oophorectomy History of oral surgery History of partial hysterectomy History of tonsillectomy History of tubal ligation History of wisdom tooth extraction Postoperative nausea Social History Smoking Status: Never smoker Do You Dip or Chew Tobacco: No Hx Alcohol Use: No Hx Substance Use: No substance use type: does not use Lab Results Anesthesia Preop Results Results Anesthesia Widget: WBC 8.30 K/uL (4.8-10.8) 12/22/20 Hgb 14.4 g/dL (12.0-16.0) 12/22/20 Hct 41.5 % (37-47) 12/22/20 Plt 252 K/uL (130-400) 12/22/20 Na 140 mmol/L (136-145) 12/22/20 K 3.8 mmol/L (3.5-5.1) 12/22/20 Cl 109 mmol/L (98-107) H 12/22/20 CO2 25 mmol/L (21-32) 12/22/20 BUN 13 mg/dl (7-18) 12/22/20 Creat 0.70 mg/dl (0.6-1.2) 12/22/20 Glucose Level 92 mg/dl (70-99) 12/22/20 PT 9.7 Seconds (9.0-12.0) 12/22/20 PTT 26.5 Seconds (21.0-31.0) 12/22/20 INR 1.0 (0.9-1.1) 12/22/20 Testing Electrocardiogram Date: 06/12/18 Findings: + NSR @ (84) Echocardiogram Date: 05/11/18 LVEF > 70%. Sinus tachycardia during exam (100-130 bpm). No RWMA. No significant valvular disease. Stress Test Date: 10/23/20 Type: exercise Stress echo/ekg negative for inducible ischemia. LVEF 55-59%. Grade I DD. No significant valvular disease. 6.7 METS. 84% MPHR.
[~2021-01-11 10:05] MED LIST changes: -ATV/1 PO; +CLINDAMYCIN 600 MG/54 ML BAG IV SCH; -FLVHFA44 INH; -LEVO75TA PO; -LISI-725 PO; +LR 15ML/HR IV SCH; -RBTUDL5 PO; -SERT50TA PO; -TRAZ50TA35 PO; -VNTHFA/IN INH
[2021-01-11] MEDS ORDERED: ATROPINE SULFATE 0.1 MG/ML 10ML SYR IV PRN (11:42)
[2021-01-11] MEDS ORDERED: PROMETHAZINE HCL 12.5 MG in SODIUM CHLORIDE 0.9% 50 ML IV PRN (11:42)
[2021-01-11] MEDS ORDERED: ONDANSETRON INJ 2 MG/ML 2 ML VIAL IV PRN ×3 (11:42→18:21)
[2021-01-11] MEDS ORDERED: ePHEDrine sulfate 50 MG/ML AMP IV PRN (11:42)
--- NOTE | 2021-01-11 12:14 | History & Physical Bridge Note ---
Date of Service January 11, 2021 History & Physical Bridge Note I have examined the patient, reviewed the History & Physical and in the interval since the performance of the History & Physical I have noted the following changes of clinical significance: no changes noted
[2021-01-11] MEDS ORDERED: PROPOFOL IV EMULSION 10 MG/ML 20 ML VIAL IV ONE (12:20)
[2021-01-11] MEDS ORDERED: LIDOCAINE 2% 2 ML VIAL/AMP(20MG/ML) INFIL ONE (12:20)
[2021-01-11] MEDS ORDERED: ROCURONIUM BROMIDE 10 MG/ML 5 ML VIAL IV ONE (12:20)
[2021-01-11] MEDS ORDERED: MIDAZOLAM HCL 1 MG/ML 2ML VIAL ONE ×2 (12:20→12:32)
[2021-01-11] MEDS ORDERED: ONDANSETRON INJ 2 MG/ML 2 ML VIAL ONE ×3 (12:20→18:25)
[2021-01-11] MEDS ORDERED: fentaNYL citrate 100 MCG/2 ML VIAL ONE (12:20)
[2021-01-11] MEDS ORDERED: BUPIVACAINE 0.25% 30 ML VIAL ONE (12:21)
[2021-01-11] MEDS ORDERED: LIDOCAINE/EPINEPHRINE 1% 20 ML VIAL ONE (12:21)
[2021-01-11] MEDS ORDERED: FAMOTIDINE/PF 20 MG/2 ML VIAL IV ONE (12:36)
[2021-01-11] MEDS ORDERED: ACETAMINOPHEN 1000 MG/100 ML IV IV ONE (12:36)
[2021-01-11] MEDS ORDERED: HYDROmorphone INJ 1 MG/ML SYRINGE ONE ×2 (13:06→13:45)
[2021-01-11] MEDS ORDERED: DEXAMETHASONE SOD INJ 4 MG/ML VIAL ONE (13:06)
[2021-01-11] MEDS ORDERED: KETAMINE 50 MG/5 ML SYRINGE ONE (13:07)
[2021-01-11] MEDS ORDERED: NEOSTIGMINE METHYLSULFATE 1 MG/ML 10ML VIAL ONE (14:23)
[2021-01-11] MEDS ORDERED: GLYCOPYRROLATE 0.2 MG/ML VIAL ONE (14:23)
[2021-01-11] MEDS ORDERED: PHENYLEPHRINE 100MCG/ML 5ML SYR ONE (14:42)
--- NOTE | 2021-01-11 16:24 | Post Operative Brief Note ---
PG Immediate Post Op with CF Date of Surgery January 11, 2021 Pre & Post Diagnosis Operation Date: 01/11/21 11:50 Pre-Op Diagnosis: Symptomatic Bilateral Breast Macromastia Post-Op Diagnosis: Symptomatic Bilateral Breast Macromastia I identified the patient and participated in the time-out.: Yes Procedure Operation Date: 01/11/21 11:50 Actual Procedures p Bilateral Breast Reduction with Free Nipple Graft(Bilateral) - Kristin Greenberg MD Surgeon Kristin Greenberg MD Choker Hooker Natividad Ellis PA-C Estimated Blood Loss 75 Findings Consistent with Post-Op Diagnosis Specimens Specimen Description: Fresh Specimen: A. Left Breast Tissue- 1340 grams out of body - 1415 out of room - 1438 Fresh Specimen: B.) Right Breast Tissue - 1322 grams out of body - 1515 out of room - 1540 Drains Joe-Mera Drain (15 mexican round x2)
--- NOTE | 2021-01-11 16:34 | Electrocardiogram Report ---
Test Reason : Blood Pressure : / mmHG Vent. Rate : 085 BPM Atrial Rate : 085 BPM P-R Int : 154 ms QRS Dur : 086 ms QT Int : 380 ms P-R-T Axes : 055 022 028 degrees QTc Int : 452 ms Poor data quality, interpretation may be adversely affected Normal sinus rhythm Normal ECG When compared with ECG of 27-JUL-2017 19:36, Nonspecific T wave abnormality, improved in Anterior leads Confirmed by Mikhail Harrington ([id number]) on 01/11/2021 4:34:26 PM Referred By: Kristin Greenberg Confirmed By:Mikhail Harrington
--- NOTE | 2021-01-11 16:42 | Operative Report ---
PG Post Operative Report Pre & Post Diagnosis Operation Date: 01/11/21 11:50 Pre-Op Diagnosis: Symptomatic Bilateral Breast Macromastia Post-Op Diagnosis: Symptomatic Bilateral Breast Macromastia I identified the patient and participated in the time-out.: Yes Procedure Operation Date: 01/11/21 11:50 Actual Procedures p Bilateral Breast Reduction with Free Nipple Graft(Bilateral) - Kristin Greenberg MD Surgeon Kristin Greenberg MD Thread Milling Machine Set Up Operator Natividad Ellis PA-C Estimated Blood Loss 75 Findings Consistent with Post-Op Diagnosis Specimens left breast 1340 grams, right breast 1322 grams Drains GUY x2 Complications none Indications back, neck and bilateral shoulder pain due to bilateral macromastia Description of Procedure The risks, benefits and alternatives of the procedure were explained to the patient who agreed and signed consent. She was identified and marked in the preoperative holding area. She was brought to the operating room where she was positioned supine and placed under general anesthesia without incident. Surgical site markings were again reassessed. I began with the left breast. 1% lidocaine with epinephrine was used to anesthetize the planned incisions as well as the nipple areolar complex. A breast tourniquet was applied using the Stephy clamp and lap sponge. A 42 mm cookie cutter was used to circumscribe the nipple-areolar complex. The nipple-areolar complex was then removed as a full thickness graft and placed on the back table in saline soaked sponge. At this point, tourniquet was released and the inframammary fold incision was made using 15 blade scalpel. Electrocautery was used to deepen the incision through subcutaneous fat and breast parenchyma down to chest wall. Care was taken to perform this in a bevelled direction ligating vessels as needed and achieving hemostasis with electrocautery. Once the breast was mostly undermined, the superior incision was then made to the inferior aspect of the keyhole incision. This was performed using a 15 blade scalpel. Incision was then deepened using electrocautery again full thickness through the breast. A similar incision was made laterally. Centrally, the skin was incised using electrocautery and additional breast parenchyma was resected again in a beveled fashion in order to retain some projection of the breast. Tissue was passed off for weighing. Additional resection was performed until we achieved the desired size and the wound was able to be closed with minimal tension. Total resection weight on the left was 1340 grams. Hemostasis was achieved with electrocautery 0.25% Marcaine plain was used to anesthetize the incisions as well as pectoralis fascia. A 15 Lithuanian Brad drain was brought out through a separate stab incision laterally toward the axilla. The keyhole was then incised using 15 blade scalpel and deepithelialized. T-junction was brought together using 2-0 Vicryl suture. Closure was begun first lateral to medial using 2-0 Vicryl deep dermal sutures and then medial to lateral using 2-0 Vicryl deep dermal sutures. Vertical limb was closed using a combination of 2-0 Vicryl deep dermal sutures and a 3-0 PDS interrupted dermal sutures. The inframammary fold incision was closed using 2-0 PDO deep dermal running Quill suture. The vertical limb was then closed using 3-0 Monocryl running subcuticular suture. Nipple areolar complex was inspected and thinned using a curved iris scissor. It was placed in the recipient bed and sutured into place using 4-0 silk tie over bolster sutures and 4-0 chromic interrupted sutures. A similar procedure was undertaken on the right side. Total resection weight was 1322 grams on the right. There was reasonable symmetry at the close of the case. No complications. Dermabond Prineo was applied to the incisions. Dry dressing followed by a surgical bra were placed. The patient was awakened and transferred to the recovery room in satisfactory condition. Natividad Ellis PA-C was present and scrubbed throughout the entire procedure and was instrumental in providing retraction, preparing the nipple graft and assisting in simultaneous wound closure. I attest to the content of the Intraoperative Record and any orders documented therein. Any exceptions are noted below.
[2021-01-11] MEDS: fentaNYL citrate 100 MCG/2 ML VIAL IV PRN ×2 (16:48→16:53)
[2021-01-11] MEDS: HYDROmorphone INJ 2 MG/ML SYR/VIAL IV PRN ×2 (17:10→17:15)
--- NOTE | 2021-01-11 17:24 | Anesthesiology Progress Note ---
Date of Service January 11, 2021 Anesthesia Post Procedure Vital Signs Vital Signs: Temp Pulse Pulse Resp BP Pulse Ox 01/11/21 17:10 36.6 C 58 L 19 140/70 98 01/11/21 17:00 36.6 C 60 12 129/71 99 01/11/21 16:50 58 L 14 133/69 99 01/11/21 16:40 63 15 139/72 92 01/11/21 16:33 36.1 C L 67 16 110/71 100 01/11/21 10:37 36.8 C 87 18 136/88 96 Pain Intensity Bilateral Breast: Pain Intensity: 5 Transfer of Care Handoff Completed per policy Notes Mental Status: alert / awake / arousable and participated in evaluation Patient Amnestic to Procedure: Yes Nausea / Vomiting: adequately controlled Pain: adequately controlled Airway Patency, RR, SpO2: stable & adequate BP & HR: stable & adequate Hydration State: stable & adequate Anesthetic Complications: no major complications apparent
[2021-01-11] MEDS ORDERED: diphenhydrAMINE 50 MG/ML VIAL IV PRN (18:10)
[2021-01-11] MEDS ORDERED: MoRPHine SULFATE 2 MG/ML CARP IV PRN (18:10)
[2021-01-11] MEDS ORDERED: diphenhydrAMINE Capsule 25 MG CAP PO PRN (18:10)
[2021-01-11] MEDS ORDERED: LORazepam 0.5 MG TAB PO PRN (18:10)
[2021-01-11] MEDS ORDERED: ALBUTEROL HFA 8 GM INHALER INH PRN (18:10)
[2021-01-11] MEDS ORDERED: ACETAMINOPHEN 325 MG TAB PO PRN (18:10)
[2021-01-11] MEDS ORDERED: oxyCODONE/ACETAMINOPHEN 5mg/325mg TAB PO PRN (18:10)
[2021-01-11] MEDS ORDERED: hydrOXYzine HCl 10 MG TAB PO PRN (18:10)
[2021-01-11] MEDS: MoRPHine SULFATE 4 MG/ML 1 ML CARP\\VIAL IV PRN ×2 (18:35→21:04)
[2021-01-11] MEDS: D5W AND 1/2NSS + 20MEQ KCL 20 MEQ/1,000 ML BAG IV SCH (19:14)
[2021-01-11] MEDS: CLINDAMYCIN 600 MG in DEXTROSE 5% 50 ML IV SCH (20:39)
[2021-01-11] MEDS ORDERED: ACETAMINOPHEN 1,000 MG/100 ML VIAL IV PRN (21:35)
[2021-01-11] MEDS ORDERED: PROMETHAZINE HCL 25 MG in SODIUM CHLORIDE 0.9% 50 ML IV PRN (21:37)
[2021-01-12] MEDS: MoRPHine SULFATE 4 MG/ML 1 ML CARP\\VIAL IV PRN ×2 (00:47→04:13)
[2021-01-12] MEDS: CLINDAMYCIN 600 MG in DEXTROSE 5% 50 ML IV SCH (04:13)
[2021-01-12] MEDS: D5W AND 1/2NSS + 20MEQ KCL 20 MEQ/1,000 ML BAG IV SCH (07:54)
[2021-01-12] MEDS: oxyCODONE/ACETAMINOPHEN 5mg/325mg TAB PO PRN ×2 (07:55→11:57)
--- NOTE | 2021-01-12 08:06 | Surgery Progress Note ---
Date of Service January 12, 2021 Assessment & Plan (1) S/P bilateral breast reduction: Plan: Lo is doing well this morning. She reports some nausea with vomiting last night, but notes that her nausea has completely resolved this morning. Her pain is well-controlled with as needed Percocet. She is ok for discharge to home. We reviewed her post-op medications. She is aware that she will start her post-op antibiotic when she gets home. She will begin her SQ Lovenox as well. She is aware that she is not allowed to shower for the next week until her nipple bolsters are removed in office. She will follow-up in office tomorrow. She was encouraged to call with any questions or concerns. Admission and Anticipated Discharge Date Admission Date: January 11, 2021 Subjective Lo is resting comfortably in bed with her at bedside. Her pain is controlled with as needed Percocet. She reports that she did have nausea last night with some vomiting. She notes that her nausea has resolved. She reports that she is feeling well this morning. She does note that she did spill some chocolate milk on her surgical dressings. Lo did not get any milk on her nipple bolsters. She reports that her nurses changed her dressings right away. She denies any other concerns or complaints. Physical Exam Physical Exam: Dressings in place- clean, dry. Bilateral GUY drains in place with serosang drainage- GUY drains removed at bedside this morning and optifoam dressings placed. Nipple bolsters in place. No signs of active bleeding on exam. No evidence of seroma formation. She notes that she is very happy with her breast so far and notes an improvement in her pre-operative symptoms. Results & Data ([facility]) Vital Signs (Past 12 Hours) Vital Signs Temp Pulse Resp BP Pulse Ox 01/12/21 04:10 36.7 C 74 16 137/75 96 01/11/21 23:30 36.8 C 80 16 136/83 94 PG Care Time/CCT Total # of Minutes Spent Total Time Spent with Patient: Total time spent is greater than 50% in coordination of care (as documented) at patient's floor/unit and/or counseling patient: Coding Level of Care Code None Diagnoses S/P bilateral breast reduction Z98.890
[2021-01-12] MEDS ORDERED: lisinopril 20 MG TAB PO SCH (09:00)
[2021-01-12] MEDS ORDERED: MULTIVITAMIN TAB PO SCH (09:00)
[2021-01-12] MEDS ORDERED: METOPROLOL SUCC 50MG EXT REL TAB PO SCH (09:00)
[2021-01-12] MEDS ORDERED: ENOXAPARIN INJ 40 MG/0.4 ML SYR SQ ONE (10:54)
--- NOTE | 2021-01-12 16:01 | Discharge Summary ---
Date of Service January 12, 2021 Admission HPI Per Admitting Provider Please see admission H and P. Principal Diagnosis Macromastia Discharge Data Allergies Allergy/AdvReac Type Severity Reaction Status Date / Time adhesive Allergy Mild Rash, hives Verified 01/11/21 10:32 Penicillins Allergy Unknown Anaphylaxis Verified 01/11/21 10:32 nickel Allergy Hives Verified 01/11/21 10:32 Procedures Performed Operation Date: 01/11/21 11:50 Actual Procedures p Bilateral Breast Reduction with Free Nipple Graft(Bilateral) - Kristin Greenberg MD Ordered Studies 01/11/21 05:00 US - OR guided needle placemen Routine Hospital Course (1) S/P bilateral breast reduction: Lo is a 40-year-old female with Bilateral Symptomatic Macromastia. She was taken to the OR and underwent bilateral breast reduction with free nipple graft. There were no intraoperative complications. She was taken to recover and transferred to med/surg for observation. Overnight she was feeling nauseous and did have an episode of vomiting. On POD #1 she was feeling a bit sore, but was overall doing well. Her nausea had resolved. She was tolerating a regular diet, voiding on her own, and ambulating without issue. On exam, her vital signs were stable. Her incisions were clean, dry, intact. Bilateral nipple bolsters were in place. Her drains were removed without issue at bedside and optifoam dressing was placed. She was discharged home with instructions to follow-up in the office in 1 day. All questions were answered. Total Time Total Time Spent Total Time Spent (In Minutes): 10 Discharge Plan Discharge Items Patient Disposition: Home - Self-Care Reason For Visit: Breast Hypertrophy Discharge Diagnosis: Breast Hypertrophy Activity: As commented below Non-emergency contact: Surgeon Call non-emergency contact if: you have any medication questions, your pain is not controlled, your temperature is above 101.5, your wound has increased redness and your wound has increased drainage Follow-up/Referrals: Kristin Greenberg MD [Physician] - 01/13/21 10:00 am Vicki Hilliard DO [Primary Care Provider] - Diet: Regular Addtl Attending Provider Instructions: ACTIVITY RECOMMENDATIONS: __Normal activities _X_No bending, lifting or straining __No driving _X_Driving allowed when you are off pain medications _X_Walking permitted __You should have help at home for ___ days DRESSINGS: __No dressings required _X_Keep surgical bra and surgical dressings dry/in place until first office visit __Remove dressings ___ and leave dressings off __Apply ice ___ days __Remove dressings and reapply garment __Apply antibiotic ointment (Bacitracin, Neosporin, etc) to wounds 3-4 times/day for 10 days BATHING: _X_Keep dressings dry X__Sponge bathing permitted __Showering permitted _X_No swimming, hot tubs or soaking in a tub MEDICATIONS: Resume previous medications unless instructed otherwise by your surgeon. _X_Do not use aspirin, Motrin, Advil or Ibuprofen as these may promote bleeding. Please use Tylenol. _X_Prescription(s) provided: Prescriptions for Percocet, Clindamycin and Lovenox provided at last office visit. Please use as directed. SPECIAL CARE INSTRUCTIONS: * It is normal to have a mild fever after surgery. If your temperature is higher than 101.5 degrees F, please call the office at [phone]. * Constipation is a typical side effect of pain medication. An [id number] stool softener will help relieve this. * Leaking around surgical drains may occur and should not cause concern. Sometimes these drains become clogged. If this happens, remove the bulb and milk the clot out of the tube, then replace the bulb. * If you have unusual drainage from a wound or are concerned you have an infection or have any questions or concerns, please call the office at [phone]. FOLLOW UP VISIT: If not already scheduled, please call the office, , when you return home after surgery to schedule an appointment to be seen in 1 day. Pending Studies at Discharge: Yes Studies:: Pathology report. Stand-Alone Forms: [facility], Smoking Cessation Medications and DC Order Prescriptions: Continued lisinopril 20 mg tablet 20 mg PO QAM RF: 0 metoprolol succinate 100 mg tablet extended release 24 hr 100 mg PO QAM RF: 0 albuterol sulfate 90 mcg/actuation HFA aerosol inhaler 2 puff inhalation Q6H PRN (Reason: sob) RF: 0 hydroxyzine HCl 10 mg tablet 10 mg PO TID PRN (Reason: Anxiety) RF: 0 oxycodone-acetaminophen [Endocet] 5-325 mg tablet 1 tab PO Q4H PRN (Reason: pain) Qty: 18 RF: 0 clindamycin HCl 300 mg capsule 300 mg PO BID 7 Days Qty: 14 RF: 0 enoxaparin [Lovenox] 40 mg/0.4 mL syringe 40 mg subcut DAILY 7 Days Qty: 2.8 RF: 0 multivitamin Tablet 1 tab PO QAM RF: 0 cyclobenzaprine 10 mg Tablet 10 mg PO TID PRN (Reason: Muscle Spasm) RF: 0 Discharge Orders: Discharge Order (Routine); Ordered 01/12/21 Ordered By: Virginia Fuentes/Other Patient Handouts: DVT Post Op Prevention Admission Data Admit Date/Time: 01/11/21 16:35 Attending Provider: Kristin Greenberg Admit Provider: Kristin Greenberg Primary Care Provider: Vicki Hilliard Other Interventions: Discharge Summary Assessment (RN) Last Done: 01/12/21 10:26 Coding Level of Care Code 06924 OBS Care - Discharge Diagnoses S/P bilateral breast reduction Z98.890
== END 2021-01-12 12:33 | disposition home or self-care (01) ==
LOC: 3E 10:05 → ASU 10:05